=== PATIENT | female | born 1990 | race Hispanic/Latino ===

== ENCOUNTER 2018-02-18 10:40 | Emergency (ER) | payer BC ==
[2018-02-18 11:25] LABS: #Eosinphils 0.1 thou/uL (0.0-0.7); #Lymphocytes 2.1 thou/uL (1.20-3.40); #Monocytes 0.4 thou/uL (0.11-0.59); #Neutrophils 5.2 thou/uL (1.40-6.50); %Basophils 0.1 % (0.0-1.0); %Eosinophils 0.7 % (0.0-10.0); %Monocytes 5.1 % (0.0-10.0); %Neutrophils 67.1 % (42.0-75.0); Mean Corpuscular HGB CONC 35.3 g/dL (32.0-36.0); Mean Corpuscular Hemoglobin 32.1 pg (27.0-31.0); Mean Corpuscular Volume 90.9 fl (81.0-99.0); Mean Platelet Volume 7.3 fL (7.4-10.4); Platelet Count 227 thou/uL (130-400); RBC Distribution Width 12.4 % (11.5-14.5); Red Blood Cell (RBC) Count 3.75 mill/uL (4.20-5.40); White Blood Cell (WBC) Count 7.7 thou/uL (4.8-10.8)
--- NOTE | 2018-02-18 14:16 | ULT ---
LIMITED OBSTETRICAL ULTRASOUND: Date: 02/18/18 COMPARISON: None. HISTORY: 27-year-old female with pelvic pain. TECHNIQUE: Multiplanar Schneider scale sonographic imaging of the gravid uterus obtained. FINDINGS: Uterus measures 13.6 x 9.5 cm and contains a single intrauterine gestation with a heart rate of 158 beats/minute. anatomy is not well assessed at this gestational age. Biometry: BPD: 2.4 cm, 14 weeks/1 day HC: 9.5 cm, 14 weeks/2 days AC: 7.9 cm, 14 weeks/2 days FL: 1.2 cm, 13 weeks/3 days Average age based on ultrasound is 14 weeks/0 days. Estimated date over delivery is 08/19/18. IMPRESSION: Single intrauterine gestation as detailed above. POS: GAYLA
== END 2018-02-18 12:48 | disposition home or self-care (01) ==
LOC: ERS 10:40
DX: O20.9 Hemorrhage in early pregnancy, unspecified (principal); Z3A.13 13 weeks gestation of pregnancy
CPT/HCPCS: 76815; 84702; 85025; 86900; 86901

== ENCOUNTER 2018-08-13 23:00 | Inpatient (IN) | payer BC ==
[~2018-08-13 23:00] MED LIST: Bupivacaine PF 0.5% 30 ML VIAL ONE
[2018-08-13] MEDS ORDERED: Diphenoxylate HCl/Atropine Tablet PO PRN (23:28)
[2018-08-13] MEDS ORDERED: Carboprost 250 MCG/ML AMP IM PRN (23:28)
[2018-08-13] MEDS ORDERED: Lidocaine 1% (PF) 30 ML VIAL SC PRN (23:28)
[2018-08-13] MEDS ORDERED: HYDROcodone/Acetaminophen 5/325 mg Tablet PO PRN (23:28)
[2018-08-13] MEDS ORDERED: Ondansetron HCl/PF 4 MG/2 ML Vial IVP PRN (23:28)
[2018-08-13] MEDS ORDERED: NS w/ Oxytocin 10 units 500 ML IV SCH ×2 (23:28)
[2018-08-13] MEDS ORDERED: Butorphanol Tartrate 1 MG/ML VIAL SLOW IVP PRN (23:28)
[2018-08-13] MEDS ORDERED: Misoprostol 200 MCG TAB PR PRN (23:28)
[2018-08-13] MEDS ORDERED: Ibuprofen 800 MG TAB PO PRN (23:28)
[2018-08-13] MEDS ORDERED: NS / Oxytocin 40 units/1000ml 1,000 ML IV PRN (23:28)
[2018-08-13] MEDS ORDERED: Methylergonovine 0.2 MG/ML VIAL IM PRN (23:28)
[2018-08-13] MEDS ORDERED: Penicillin G Potassium 5 MILL.UNITS in Sodium Chloride 0.9% 100 ML IVPB SCH (23:45)
[2018-08-13 23:51] VITALS: BMI 29.0
[2018-08-14 00:39] LABS: Hemoglobin 13.3 g/dL (12.0-16.0); Mean Corpuscular HGB CONC 34.5 g/dL (32.0-36.0); Mean Corpuscular Hemoglobin 32.4 pg (27.0-31.0); Mean Corpuscular Volume 93.7 fL (78.0-98.0); Platelet Count 213 thou/uL (130-400); Red Blood Cell (RBC) Count 4.11 mill/uL (4.20-5.40); White Blood Cell (WBC) Count 7.1 thou/uL (4.8-10.8)
[2018-08-14] MEDS: Misoprostol 100 MCG TAB PO SCH ×3 (01:00→08:51)
[2018-08-14] MEDS: Lactated Ringer's 1,000 ML IV SCH ×4 (01:01→18:30)
[2018-08-14 01:17] LABS: HBSAg Index 0.21 S/CO (0-0.99); Hep B Surf Ag Non-Reactive S/CO (NonReactive)
[2018-08-14 04:35] LABS: Syphilis Antibody Nonreactive (Nonreactive); Syphilis Antibody Index 0.04 S/CO (<1.00 Non-Reactive)
[2018-08-14] MEDS: Penicillin G 2.5 MILL.units 2.5 MILL.UNITS in Premix Bag 1 BAG IVPB SCH ×4 (05:11→17:35)
[2018-08-14] MEDS ORDERED: Ondansetron HCl/PF 4 MG/2 ML Vial ONE ×2 (16:55→21:00)
[2018-08-14] MEDS ORDERED: Fentanyl 4 mcg/Bup 0.1% Cadd 100 ML ONE (17:05)
[2018-08-14] MEDS ORDERED: Fentanyl 100 MCG/2 ML VIAL ONE (17:57)
[2018-08-14] MEDS ORDERED: ePHEDrine/0.9% NaCl/PF SYRINGE 50 mg/10 ml SLOW IVP PRN (18:27)
[2018-08-14] MEDS ORDERED: Hydrocerin (Eucerin) Cream 120 gm Jar TOP PRN (18:27)
[2018-08-14] MEDS ORDERED: diphenhydrAMINE 50 MG/ML VIAL IVP PRN ×2 (18:27→23:07)
[2018-08-14] MEDS ORDERED: Naloxone HCl 0.4 mg/ml Vial IVP PRN ×4 (18:27→23:07)
[2018-08-14] MEDS ORDERED: Ondansetron HCl/PF 4 MG/2 ML Vial IVP PRN ×3 (18:27→23:07)
[2018-08-14] MEDS ORDERED: Acetaminophen 325 MG TAB PO PRN (18:27)
[2018-08-14] MEDS ORDERED: Lactated Ringer's 500 ML IV PRN (18:27)
[2018-08-14] MEDS ORDERED: Promethazine HCl 25 MG/ML VIAL IM PRN ×2 (18:27→23:07)
[2018-08-14] MEDS ORDERED: Communication Order-Pharmacy FS SCH ×2 (18:30→23:15)
[2018-08-14] MEDS ORDERED: Fentanyl 4 mcg/Bupivacaine 0.1% Cassette 100 ML EPIDURAL SCH (18:30)
[2018-08-14] MEDS ORDERED: Bicitra 30 ML UDCUP PO SCH (20:45)
[2018-08-14] MEDS ORDERED: ePHEDrine/0.9% NaCl/PF SYRINGE 50 mg/10 ml ONE (21:00)
[2018-08-14] MEDS ORDERED: Lidocaine 2% MPF 10 ML AMP (For Epidural Use) ONE (21:00)
[2018-08-14] MEDS ORDERED: Oxytocin 10 UNITS/ML VIAL ONE ×2 (21:00→21:02)
[2018-08-14] MEDS ORDERED: CEFAZOLIN/Water 2 GM/20 ML SYRINGE SLOW IVP SCH (21:00)
[2018-08-14] MEDS ORDERED: Morphine PF 1 MG/ML SYR ONE (21:32)
--- NOTE | 2018-08-14 23:01 | CON ---
LABOR AND DELIVERY OR INTRAOPERATIVE CONSULTATION DATE OF CONSULTATION: 08/14/2018 REQUESTING PHYSICIAN: Dr. Hunter. REASON FOR EVALUATION: Post-C section delivery, evaluation of the posterior uterine serosa. HISTORY OF PRESENT ILLNESS: In brief, I was asked to evaluate the patient, after delivery was comple roderick by , in OR room #[address] Hunter. I arrived to the room about 6 min utes after I received the call as I [facility] In brief, I was asked to evaluate the patient's posterior uterine serosa. According to Dr. Hunter, after the baby was delivered and the hysterotomy was closed, inspection of the posterior uteru s revealed a friable appearing peritoneal serosa with what looked like small vesicular lesions. I ev aluated the posterior serosa visually. The posterior lower uterine segment had what appeared to be e vidence of peritoneal endometriosis. There were very small less than 0.5 cm each clear peritoneal ve sicles that had the appearance of possible endometriosis. These were also quite friable to touch. T here was no mass effect or ulceration. There was no evidence of malignancy grossly. As this had the appearance of possible superficial/serosal endometriosis, I requested a small peritoneal biopsy of o ne of the blebs. This was done with pickups and Metzenbaum scissors by Dr. Hunter under my direct obs ervation. One sample was sent labeled posterior uterine serosa peritoneal biopsy. As the posterior uterine serosa was slightly friable, we called the main OR for Madyson. Madyson was applied generously to the posterior lower uterine segment and hemostasis was assured. Surgicel was also placed over th e Madyson to aid in further hemostasis. Again, there was no gross mass lesion or gross evidence of ma lignancy and I suspect this may be peritoneal endometriosis. I discussed this briefly with the patie nt who was awake during the procedure. I did not physically scrub in during this consult, as it was direct observation of the lesion and direct guidance of the biopsy. No complications were noted with this area. Once again, once I arrived to the room, the uterus had already been closed in the anterior lower uterine segment. Tissue was sent to pathology x1 container. 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 No evidence of malignancy.
[2018-08-14] MEDS ORDERED: Promethazine HCl 25 MG SUPP PR PRN (23:07)
[2018-08-14] MEDS ORDERED: L&D-Morphine 4 MG/ML VIAL SLOW IVP PRN (23:07)
[2018-08-14] MEDS ORDERED: Ketorolac Tromethamine 30 MG/ML VIAL IVP PRN (23:07)
[2018-08-14] MEDS ORDERED: HYDROmorphone 2 MG/ML VIAL SLOW IVP PRN (23:07)
[2018-08-14] MEDS ORDERED: Meperidine HCl/PF 25 MG/ML VIAL SLOW IVP PRN (23:07)
[2018-08-14] MEDS ORDERED: Eucerin (Mineral Oil/Petrolatum,White) 30 gm Jar TOP PRN (23:07)
[2018-08-14] MEDS ORDERED: Naloxone HCl 0.4 mg/ml Vial IV PRN (23:07)
[2018-08-14] MEDS ORDERED: Ketorolac Tromethamine 30 MG/ML VIAL IVP SCH (23:15)
[2018-08-15] MEDS ORDERED: Ketorolac Tromethamine 30 MG/ML VIAL ONE (00:48)
[2018-08-15] MEDS ORDERED: diphenhydrAMINE 25 MG CAP PO PRN (02:17)
[2018-08-15] MEDS ORDERED: Bisacodyl 10 MG SUPP PR PRN (02:17)
[2018-08-15] MEDS ORDERED: Ondansetron HCl/PF 4 MG/2 ML Vial IVP PRN (02:17)
[2018-08-15] MEDS ORDERED: Lanolin Ointment 7 GM TUBE TOP PRN (02:17)
[2018-08-15] MEDS ORDERED: Lactated Ringer's 1,000 ML IV SCH (02:17)
[2018-08-15] MEDS ORDERED: NS / Oxytocin 40 units/1000ml 1,000 ML IV SCH (02:17)
[2018-08-15] MEDS ORDERED: Meperidine HCl/PF 25 MG/ML VIAL IM PRN ×2 (02:17→07:15)
[2018-08-15] MEDS ORDERED: HYDROcodone/Acetaminophen 5/325 mg Tablet PO PRN ×3 (02:17→07:15)
[2018-08-15] MEDS: Penicillin G 2.5 MILL.units 2.5 MILL.UNITS in Premix Bag 1 BAG IVPB SCH ×2 (04:48→04:49)
[2018-08-15 04:58] LABS: Hemoglobin 12.3 g/dL (12.0-16.0); Mean Corpuscular HGB CONC 34.2 g/dL (32.0-36.0); Mean Corpuscular Hemoglobin 32.2 pg (27.0-31.0); Mean Corpuscular Volume 94.2 fL (78.0-98.0); Mean Platelet Volume 8.4 fL (7.4-10.4); Platelet Count 190 thou/uL (130-400); RBC Distribution Width 12.7 % (11.5-14.5); Red Blood Cell (RBC) Count 3.83 mill/uL (4.20-5.40); White Blood Cell (WBC) Count 10.1 thou/uL (4.8-10.8)
--- NOTE | 2018-08-15 05:08 | OP-2 ---
DATE OF PROCEDURE: 08/14/2018 PLANT ENGINEER: Leonardo Hirsch, PGY-2 PRIMARY SURGEON: Dr. Joey Hunter. PROCEDURE: Low transverse section. PREOPERATIVE DIAGNOSIS: Term intrauterine . POSTOPERATIVE DIAGNOSES: 1. Term intrauterine . 2. Failure to progress. ANESTHESIA: Spinal. INDICATIONS: The patient is a 27-year-old G2, P0-1-1-0 female at 39 and 4 weeks ' gestation who presents for induction of labor and then would have failure to progress after over her 24 hours, did not dilate past 2. PROCEDURE IN DETAIL: After risks, benefits, and alternatives were explained to the patient, she gave informed consent. Preoperative antibiotics included cefazolin 2 grams IV. Patient was taken to the operating room and spinal anesthesia was initiated. She was placed in the supine position with a left tilt and prepped and draped in the usual sterile fashion. A Pfannenstiel incision was made with a scalpel and carried down to the level of the fascia, which was sharply nicked. The fascial cut was extended bilaterally with curved Dick scissors. The inferior and superior edges of the cut fascia edges were elevated with Nadia clamps and the underlying rectus muscles were sharply and bluntly dissected free. The recti were divided digitally and retracted manually. The peritoneum was entered bluntly, retracted manually. Bladder blade was placed. A low transverse score was made with the scalpel and the uterus was entered in the midline with the scalpel. Clear fluid was seen. The hysterotomy was extended manually. The infant was noted to be vertex and there was a little bit of difficulty with delivery due to larger head circumference. The hysterotomy had to be extended with scissors just by a small cut. The was delivered by fundal pressure. Mouth and nares were bulb suctioned. Cord was clamped and cut and grossly normal male was handed to waiting nurse. Cord blood was obtained. Placenta was manually extracted and found to be intact with 3-vessel cord and discarded. The uterus was externalized and the endometrium was curetted with a dry lap. The bladder blade was replaced and the uterus was closed with a running locking 0 Vicryl suture followed by a series of interrupted [id number] sutures of 0-Vicryl for hemostasis, which was observed. The abdomen was then copiously irrigated with NS. While irrigating the posterior cul de sac, the posterior uterus was covered with friable membranous implants that were oozing blood in multiple areas. First a few 2-0 chromic sutures were placed in the areas of the bleeding, this failed to control the bleeding adequately. One of the areas was biopsied with the Welda. We then used Madyson powder and surgicel to obtain hemostasis. The uterus was internalized and the hysterotomy was again noted to be hemostatic. We then closed the peritoneum with a 3-0 Vicryl suture. Fascia was closed with a running nonlocking 0 Vicryl suture. The subcutaneous tissue was closed with three Vicryl sutures. The subcutaneous tissue was irrigated, there were no bleeders. The skin was approximated with simi and pressure dressing was placed. All counts were correct. The patient tolerated the procedure well and was taken to the recovery room in stable condition. ESTIMATED BLOOD LOSS: 1400 mL. COMPLICATIONS: Atonic hemorrhage, mild, resolution with oxytocin, TXA, intramyometrial methergine SPECIMENS: Cord blood sent to lab for blood type. Biopsy of posterior cul-de- sac lesion FINDINGS: Grossly normal male infant with Apgars of 9 and 10. Grossly normal placenta, 3-vessel cord discarded. DRAINS: Nash to gravity draining clear urine. MTDD
[2018-08-15] MEDS: Docusate Calcium (SURFAK) 240 MG CAP PO SCH ×2 (10:44→22:08)
[2018-08-15] MEDS: Ferrous Sulfate 325 MG TAB PO SCH ×2 (10:44→22:15)
[2018-08-15] MEDS: HYDROcodone/Acetaminophen 5/325 mg Tablet PO PRN ×3 (10:45→19:02)
[2018-08-15] MEDS: Prenatal Vitamin 1 TAB PO SCH (10:45)
[2018-08-15] MEDS: Simethicone Chewable 80 MG TAB PO PRN ×2 (15:17→22:08)
[2018-08-15] MEDS: Ibuprofen 800 MG TAB PO SCH (22:07)
[2018-08-16] MEDS: HYDROcodone/Acetaminophen 5/325 mg Tablet PO PRN ×3 (04:44→22:16)
[2018-08-16] MEDS: Simethicone Chewable 80 MG TAB PO PRN ×2 (04:46→21:40)
[2018-08-16 05:10] LABS: #Eosinphils 0.1 thou/uL (0.0-0.7); #Lymphocytes 1.6 thou/uL (1.20-3.40); #Monocytes 0.5 thou/uL (0.11-0.59); #Neutrophils 9.5 thou/uL (1.40-6.50); %Basophils 0.3 % (0.0-1.0); %Eosinophils 0.9 % (0.0-10.0); %Lymphocytes 13.4 % (21.0-51.0); %Monocytes 4.3 % (0.0-10.0); %Neutrophils 81.2 % (42.0-75.0); Hemoglobin 10.1 g/dL (12.0-16.0); Mean Corpuscular HGB CONC 34.4 g/dL (32.0-36.0); Mean Platelet Volume 7.9 fL (7.4-10.4); Platelet Count 165 thou/uL (130-400); Red Blood Cell (RBC) Count 3.05 mill/uL (4.20-5.40); White Blood Cell (WBC) Count 11.6 thou/uL (4.8-10.8)
[2018-08-16] MEDS ORDERED: Ibuprofen 800 MG TAB PO PRN (06:00)
[2018-08-16] MEDS: Ibuprofen 800 MG TAB PO SCH ×3 (06:19→21:40)
[2018-08-16] MEDS: Prenatal Vitamin 1 TAB PO SCH (09:25)
[2018-08-16] MEDS: Ferrous Sulfate 325 MG TAB PO SCH ×2 (09:26→22:21)
[2018-08-16] MEDS: Docusate Calcium (SURFAK) 240 MG CAP PO SCH ×2 (09:26→21:40)
[2018-08-16 22:56] VITALS: TEMP 98
[2018-08-17] MEDS: Ibuprofen 800 MG TAB PO SCH ×2 (06:26→13:34)
[2018-08-17 07:50] VITALS: BP 99/55
[2018-08-17] MEDS: Prenatal Vitamin 1 TAB PO SCH (08:15)
[2018-08-17] MEDS: Docusate Calcium (SURFAK) 240 MG CAP PO SCH (08:15)
[2018-08-17] MEDS: Ferrous Sulfate 325 MG TAB PO SCH (08:15)
[2018-08-17] MEDS: HYDROcodone/Acetaminophen 5/325 mg Tablet PO PRN (09:56)
[2018-08-17] MEDS: Simethicone Chewable 80 MG TAB PO PRN (09:57)
== END 2018-08-17 17:25 | disposition home or self-care (01) | DRG 787 ==
LOC: L&D 23:17 → 3SW 08-15 01:31
PROVIDERS: ADMIT Family Medicine; ATTEND Family Medicine
PROC: 10D00Z1 Extraction of Products of Conception, Low, Open Approach (ICD-10-PCS; principal; 2018-08-14)
PROC: 0UB90ZX Excision of Uterus, Open Approach, Diagnostic (ICD-10-PCS; 2018-08-14)
PROC: 3E033VJ Introduction of Other Hormone into Peripheral Vein, Percutaneous Approach (ICD-10-PCS; 2018-08-14)
PROC: 10907ZC Drainage of Amniotic Fluid, Therapeutic from Products of Conception, Via Natural or Artificial Opening (ICD-10-PCS; 2018-08-14)
DX: O61.0 Failed medical induction of labor (principal); O98.82 Other maternal infectious and parasitic diseases complicating childbirth; Z3A.39 39 weeks gestation of pregnancy; Z37.0 Single live birth; B95.1 Streptococcus, group B, as the cause of diseases classified elsewhere; N85.8 Other specified noninflammatory disorders of uterus
CPT/HCPCS: 36415; 51702; 85025; 85027; 86780; 86850; 86900; 86901; 87340; 88305; J1885; J2001; J2210; J2274; J2310; J2405; J2540; J2590; J3010; J3490; J7050; S0020